=== PATIENT | female | born 2005 | race Caucasian/White ===

== ENCOUNTER 2023-07-09 09:24 | Emergency (ER) | payer OTHER, MEDICARE, SELFPAY ==
[2023-07-09 09:31] VITALS: BP 109/64; PULSE 89; RESP 14; TEMP 36.5; O2SAT 99; BMI 22.0
--- NOTE | 2023-07-09 10:02 | ED.GENADULT ---
HPI - General Adult General Chief complaint: Eye Problems Stated complaint: have pinkeye L eye Time Seen by Provider: 07/09/23 09:25 History of Present Illness HPI narrative: 17-year-old white female who does not were contacts, and has been healthy without allergies, presents with an reddened eye that is mattering in the morning and some medial epicanthal drainage. She has had this for a day or so. She has had pinkeye in the past and says this feels similar. No trauma or injury to the eye, no chemical exposure foreign body exposure to her knowledge. Gross visual acuity is normal. Related Data Previous Rx's Medication Instructions Recorded sulfacetamide sodium 10 % eye drops 1 drp ophthalmic (eye-left) TID 5 07/09/23 days #15 mL Allergies Allergy/AdvReac Type Severity Reaction Status Date / Time No Known Drug Allergies Allergy Verified 07/09/23 09:31 Review of Systems Status of ROS: Reports: 6 or more systems reviewed and unremarkable except as noted in History and below PFSH PFS Social History Smoking Status: Never smoker How often do you have a drink containing alcohol: never AUDIT-C Alcohol total score: 0 Non-prescribed substance use: denies use Exam Narrative: Exam Narrative: Objective: Afebrile In no apparent distress Patient has some medial epicanthal mattering, her conjunctiva is reddened. Pupils react to light extra movements intact. Const: Vital Signs, click to edit/add: Vital Signs - 24 hr 07/09/23 09:31 Temperature 97.7 F Pulse Rate [Pulse Oximeter] 89 Respiratory Rate 14 Blood Pressure [Ri ght Upper Arm] 109/64 Pulse Oximetry 99 Oxygen Delivery Me thod Room Air Course Vital Signs Vital signs: Initial Vital Signs Temperature 97.7 F 07/09/23 09:31 Temperature Source Temporal Artery Scan 07/09/23 09:31 Pulse Rate 89 07/09/23 09:31 Pulse Rhythm Regular 07/09/23 09:31 Respiratory Rate 14 07/09/23 09:31 Blood Pressure 109/64 07/09/23 09:31 Blood Pressure Mean 79 07/09/23 09:31 Blood Pressure Position Sitting 07/09/23 09:31 Pulse Oximetry 99 07/09/23 09:31 Oxygen Delivery Method Room Air 07/09/23 09:31 Vital Signs Temperature 97.7 F 07/09/23 09:31 Pulse Rate 89 07/09/23 09:31 Respiratory Rate 14 07/09/23 09:31 Blood Pressure 109/64 07/09/23 09:31 Pulse Oximetry 99 07/09/23 09:31 Oxygen Delivery Method Room Air 07/09/23 09:31 Temperature 97.7 F 07/09/23 10:12 Pulse Rate 89 07/09/23 10:12 Respiratory Rate 14 07/09/23 10:12 Blood Pressure 109/64 07/09/23 10:12 Pulse Oximetry 99 07/09/23 09:31 Oxygen Delivery Method Room Air 07/09/23 09:31 Medical Decision Making MDM Narrative Medical decision making narrative: 17-year-old female with left eye conjunctivitis. She had a recent upper tract heard traction within the last couple of weeks. Certainly this could be related could be unrelated. I think covering with antibiotics to be appropriate was sulfacetamide 1 drop 3 times a day for the next 5 days, warm washcloths to the eye as needed at least 3 or 4 times a day, and recheck with regular doctor not improving, return to ED sooner worsening changes concerns. She was comfortable this plan. Discharge Plan Discharge Clinical Impression: Conjunctivitis Patient Disposition: Home, Self-Care Condition: Stable Additional Instructions: Warm washcloths to the eye 3 times a day, antibiotic drops will be prescribed, wash her hands regularly. Return if problems or concerns. Activity Level: No Restrictions Discharge Diet: Regular Prescriptions: New sulfacetamide sodium 10 % drops 1 drp ophthalmic (eye-left) TID 5 Days Qty: 15 0RF Stand Alone Forms: MyHealth Info Instructions
[2023-07-09 10:12] VITALS: BP 109/64; PULSE 89; RESP 14; TEMP 36.5
== END 2023-07-09 10:10 | disposition home or self-care (01) ==
PROVIDERS: Emergency Provider Family Medicine
DX: H10.022 Other mucopurulent conjunctivitis, left eye (principal)
CPT/HCPCS: 99283